=== PATIENT | male | born 1955 | race Caucasian/White ===

== ENCOUNTER → 2022-07-16 14:41 | Outpatient (BNVA) | payer OTHER, SELFPAY | PROVIDERS: PCP Pediatrics; Visit Provider Nurse Practitioner Family ==

== ENCOUNTER 2022-09-11 12:40 | Outpatient (REF) | payer OTHER, SELFPAY ==
--- NOTE | 2022-09-11 12:45 | EEG_ITS ---
This is a 16-channel EEG with an EKG lead. The patient is reported awake during the tracing. Background EEG rhythm is 8 to 10 hertz 5 to 20 microvolt posteriorly and lower amplitude fast anteriorly. Photic stimulation does not produce any significant abnormality. Hyperventilation is not performed. Cardiac lead does not reveal any significant abnormality. No sharp wave spikes or paroxysmal tendency noted. IMPRESSION: Unremarkable EEG. MD WILIAM Garcia/TIFFANY / [id number]
== END 2022-09-11 12:41 | disposition home or self-care (01) ==
LOC: HO.NEURO 12:40
PROVIDERS: PCP Pediatrics; Visit Provider Nurse Practitioner Family
DX: R55 Syncope and collapse (principal)
CPT/HCPCS: 95816

== ENCOUNTER 2022-09-17 10:11 | Outpatient (REF) | payer OTHER, SELFPAY ==
--- NOTE | ~2022-09-17 | MR_ITS ---
EXAMINATION: MR BRAIN WITHOUT CONTRAST CLINICAL INFORMATION: Tremor COMPARISON: None TECHNIQUE: Multiplanar multisequence MR imaging of the brain was obtained without intravenous contrast. FINDINGS: There is no acute infarct on diffusion-weighted imaging. Single focus of susceptibility artifact involving the right precentral gyrus near the vertex, which may reflect sequela of prior microhemorrhage. No extra-axial collection or mass effect/herniation. Scattered periventricular and deep white matter T2 FLAIR hyperintensities consistent with mild underlying microangiopathy. No hydrocephalus. The ventricles are normal in morphology and size. The major flow voids at the skull base are preserved. The midline structures are normal. The cerebellar tonsils are normally positioned. The craniocervical junction is normal. Marrow signal is within normal limits. The visualized soft tissues are without significant abnormality. Trace scattered paranasal sinus mucosal thickening. MR/MR head/brain wo con IMPRESSION: Mild chronic white matter microangiopathy. Otherwise unremarkable noncontrast MRI of the brain.
== END 2022-09-17 10:12 | disposition home or self-care (01) ==
LOC: HO.MRI 10:11
PROVIDERS: PCP Pediatrics; Visit Provider Nurse Practitioner Family
DX: R55 Syncope and collapse (principal); F10.11 Alcohol abuse, in remission; R25.1 Tremor, unspecified; R29.898 Other symptoms and signs involving the musculoskeletal system; R41.89 Other symptoms and signs involving cognitive functions and awareness; I10 Essential (primary) hypertension; E78.5 Hyperlipidemia, unspecified
CPT/HCPCS: 70551

== ENCOUNTER 2022-11-05 14:14 | Outpatient (AMB) | payer OTHER, SELFPAY ==
[2022-11-05 14:16] VITALS: BP 138/78; PULSE 74; O2SAT 97; BMI 20.6
--- NOTE | 2022-11-05 14:16 | A.OFFVIS_ITS ---
Intake Vital Signs 11/05/22 14:16 Height 5 ft 8 in Weight 135 lb 4 oz BMI 20.6 BP 138/78 Blood Pressure Location Rt brachial Position Sitting Pulse 74 Pulse Source Pulse Oximeter Pulse Oximetry (%) 97 Oxygen Delivery Method Room Air Intake Visit Reasons: 3m follow up syncopal attack/KINNEY - LVM Intake Note: Pt presents as a 3 month f/u for syncopal attack/KINNEY. Pt states things are about the same. pt states he has a flutter in his right ear alot almost like beating of a drum. Exchange Operator Required: No Allergies pollen extracts Allergy (Unknown, Verified 11/05/22 14:20) Unknown Medication List - Last Reconciled 11/05/22 by BEVERLY Parra amlodipine 2.5 mg PO DAILY aspirin (Adult Low Dose Aspirin) 81 mg PO DAILY atorvastatin 20 mg PO DAILY ibuprofen 800 mg PO Q8H loratadine 10 mg PO DAILY PRN metoprolol succinate ER 25 mg PO DAILY montelukast 10 mg PO DAILY HPI HPI Comments History of Present Illness Details 67-yr-old male presents for f/u visit. Pt denies any significant interval medical changes. Pt denies any interval syncopal episodes. Pt reports that he has had some unintentional weight loss- 9 lbs since last visit here 4 months ago. He is eating, not as much as beofre, feels less hungry, maybe a bit nauseous. His appetite is decreased. His sense of smell/taste is decreased. He is prone to acid reflux, but no real abd pain, diarrhea, no vomiting, no bloating. He has Omeprazole at home- uses prn. He just scheduled his routine colonoscopy- scheduled in June 2023. He is having increased BUE tremor at rest and w/ action. His legs can feel shaky at times. He is Ind w/ ADLs- sometimes can have some difficulty w/ buttons at times. Some difficulty writing and cutting his food. Throat can feel dry, constricted. Some drooling at times. He feels more stiff- in joints and his back. He is more prone to lightheadedness. His sleep is poor, wakes up almost hourly. He has a h/o snoring. 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 for s sleep consult. Denies parasomnias. Denies hallucinations. Feels like his memory is getting worse- difficulty recalling names. No difficulty paying his bills. Lives w/ his friend. He also has mild-mod mid-frontal pressure headache can be a/w nausea. May occur a few hours, 2-3 days in a row, and then not for a few weeks. Ibuprofen helps sometimes. trying to take less often. He does have a right ear fluttering- started several months ago. Denies ear pain. He is prone to jaw clenching. Today, he notes that his father had tremor and was prone to orthostatic hypotens ion/syncope from low salt levels. 09/11/22, EEG- normal 09/17/22, MR/MR head/brain wo con IMPRESSION: Mild chronic white matter microangiopathy. Otherwise unremarkable noncontrast MRI of the brain. [facility] Medical History (Updated 11/05/22 @ 15:13 by BEVERLY Parra) HLD (hyperlipidemia) HTN (hypertension) Alcohol abuse, in remission Surgical History S/P spinal surgery Hx of release of tendon Hx of tonsillectomy Hx of neck surgery Family History Mother Lung cancer Macular degeneration Father Myocardial infarction Brother Myocardial infarction Maternal Grandmother Cancer Son Asthma Social History Alcohol intake: former Patient Tobacco Use Status: Current everyday Tobacco user Substance Use Type: Marijuana Review of Systems Const All systems reviewed & are unremarkable except as noted in HPI and below Physical Exam Vital Signs: Last Vital Signs Pulse 74 11/05/22 14:16 BP 138/78 11/05/22 14:16 Pulse Ox 97 11/05/22 14:16 Oxygen Delivery Method Room Air 11/05/22 14:16 BMI result Body Mass Index 20.6 Const General: cooperative and no acute distress Orientation/consciousness: patient oriented x3 HEENT Head: Yes normocephalic Resp Effort & Inspection: normal respiratory effort and able to speak in complete sentences Neuro Other: Mild palpebrel asymmetry R > L BUE mild rest tremor BUE tone Addison R > L kinetic and wing beat tremor CARLIN: decreased BUE fluidity- R > L BUE mild tone R > L Stands ok, no right arm swing w/ right fingers flexed and finger movements, steady gait, stride ok. General: patient oriented x3 Cognition (Neuro): normal cognition Motor exam (neuro): 5/5 motor strength present throughout Psych Appearance: grossly normal Mental Status: mental status grossly normal Speech and movement: Clear speech present Affect: normal affect Attitude: cooperative Assessment & Plan Assessment & Plan (1) Syncope: Code(s): R55 - Syncope and collapse (2) Tremor: Code(s): R25.1 - Tremor, unspecified (3) Rigidity: Code(s): R29.898 - Other symptoms and signs involving the musculoskeletal system (4) Cognitive changes: Code(s): R41.89 - Other symptoms and signs involving cognitive functions and awareness Plan Reviewed EEG- normal Reviewed brain MRI- Mild chronic white matter microangiopathy. No findings to explain pt's s/s. Concur w/ Sleep consult- at [facility]. For wt loss- Pt advised that anorexia is commonly seen w/ decreased sense of smell/tatse, however pt does endorse some acid reflux. Advised to try to take his Omeprazole daily, try adding small high calorie snacks (nuts, trail mix). Will check basic labs. Pt advised to f/u w/ Dr Chow. For tremor, rigidity, h/o syncope- Pt advised to undergo DaTscan to assess for Parkinson's or other dopaminergic process. f/u in 3 months or sooner prn. Orders: Orders TSH reflex Free T4 Today R25.1 - Tremor, unspecified, R29.898 - Other symptoms and signs involving the musculoskeletal system, R41.89 - Other symptoms and signs involving cognitive functions and awareness, R55 - Syncope and collapse Vitamin B12 and Folate Today R25.1 - Tremor, unspecified, R29.898 - Other symptoms and signs involving the musculoskeletal system, R41.89 - Other symptoms and signs involving cognitive functions and awareness, R55 - Syncope and collapse Complete Blood Count Auto Diff Today R25.1 - Tremor, unspecified, R29.898 - Other symptoms and signs involving the musculoskeletal system, R41.89 - Other symptoms and signs involving cognitive functions and awareness, R55 - Syncope and collapse Erythrocyte Sedimentation Rate Today R25.1 - Tremor, unspecified, R29.898 - Other symptoms and signs involving the musculoskeletal system, R41.89 - Other symptoms and signs involving cognitive functions and awareness, R55 - Syncope and collapse DaTscan Today R25.1 - Tremor, unspecified, R29.898 - Other symptoms and signs involving the musculoskeletal system, R41.89 - Other symptoms and signs involving cognitive functions and awareness, R55 - Syncope and collapse Comprehensive Met. Panel Today R25.1 - Tremor, unspecified, R29.898 - Other symptoms and signs involving the musculoskeletal system, R41.89 - Other symptoms and signs involving cognitive functions and awareness, R55 - Syncope and collapse CRP High Sensitivity Today R25.1 - Tremor, unspecified, R29.898 - Other symptoms and signs involving the musculoskeletal system, R41.89 - Other symptoms and signs involving cognitive functions and awareness, R55 - Syncope and collapse Hemoglobin A1c Today R25.1 - Tremor, unspecified, R29.898 - Other symptoms and signs involving the musculoskeletal system, R41.89 - Other symptoms and signs involving cognitive functions and awareness, R55 - Syncope and collapse Vitamin D 25-OH (D2 and D3) Today R25.1 - Tremor, unspecified, R29.898 - Other symptoms and signs involving the musculoskeletal system, R41.89 - Other symptoms and signs involving cognitive functions and awareness, R55 - Syncope and collapse Coding Level of Care Code Est Pt Level 4 (07855) Diagnoses Syncope R55 Tremor R25.1 Rigidity R29.898 Cognitive changes R41.89
== END 2022-11-05 15:19 | disposition home or self-care (01) ==
PROVIDERS: Visit Provider Nurse Practitioner Family
DX: R55 Syncope and collapse (principal); R25.1 Tremor, unspecified; R29.898 Other symptoms and signs involving the musculoskeletal system; R41.89 Other symptoms and signs involving cognitive functions and awareness
CPT/HCPCS: 99214

== ENCOUNTER → 2022-11-05 14:14 | Outpatient (BNVA) | payer OTHER, SELFPAY | PROVIDERS: Visit Provider Nurse Practitioner Family ==

== ENCOUNTER 2023-02-14 14:02 | Outpatient (AMB) | payer OTHER, SELFPAY ==
--- NOTE | 2023-02-14 15:09 | A.OFFVIS_ITS ---
Intake Vital Signs 02/14/23 15:11 Height 5 ft 8 in Weight 135 lb BMI 20.5 BP 130/64 Blood Pressure Location Rt brachial Position Sitting Intake Visit Reasons: 3m f/u syncopal attack/KINNEY - LVM Intake Note: Patient presents for 3 month follow up syncopal attack. Allergies pollen extracts Allergy (Unknown, Verified 02/14/23 15:14) Unknown Medication List - Last Reconciled 02/14/23 by BEVERLY Parra aspirin (Adult Low Dose Aspirin) 81 mg PO DAILY atorvastatin 20 mg PO DAILY ibuprofen 800 mg PO Q8H loratadine 10 mg PO DAILY PRN metoprolol succinate ER 25 mg PO DAILY montelukast 10 mg PO DAILY HPI HPI Comments History of Present Illness Details 67-yr-old male presents for f/u visit. DaTscan was near normal. Pt denies any interval syncopal episodes. His weight loss has stabilized. He is Ind w/ ADLs- sometimes can have some difficulty w/ buttons at times. Some difficulty writing and cutting his food. Throat can feel dry, constricted. Some drooling at times. Continues to have BUE tremor at rest and w/ action. His legs can feel shaky at times. He feels more stiff- in joints and his back. He can be lightheaded, but no syncope. He continues to have sleep difficulties- Sleep study is scheduled through [employer]. Denies parasomnias. Denies hallucinations. Some STM difficulties- difficulty recalling names. Work-up: 12/20/22, Brain ELENA SPECT study FINDINGS: Symmetric activity noted in bilateral caudate nuclei. Activity in bilateral putamen is also nearly symmetric except minimal decreased uptake in the anterior right putamen. IMPRESSION: Near normal symmetric activity in the bilateral basal ganglia as described above. 11/06/2022 TSH reflex Free T4 1.22 Vitamin B12 420 Folate > 20 Complete Blood Cou nt Auto Diff WNL Erythrocyte Sedime ntation Rate 18 Comprehensive Met. Panel WNL CRP High Sensitivi ty < 0.29 Hemoglobin A1c 5.7% Vitamin D 25-OH (D 2 and D3) 56 09/11/22, EEG- normal 09/17/22, MR/MR head/brain wo con: Mild c hronic white matter microangiopathy. Otherwise unremarkable noncontrast MRI of the brain. [facility] Medical History (Updated 11/05/22 @ 15:13 by BEVERLY Parra) HLD (hyperlipidemia) HTN (hypertension) Alcohol abuse, in remission Surgical History S/P spinal surgery Hx of release of tendon Hx of tonsillectomy Hx of neck surgery Family History Mother Lung cancer Macular degeneration Father Myocardial infarction Brother Myocardial infarction Maternal Grandmother Cancer Son Asthma Social History Alcohol intake: former Patient Tobacco Use Status: Current everyday Tobacco user Substance Use Type: Marijuana Review of Systems Const All systems reviewed & are unremarkable except as noted in HPI and below Physical Exam Vital Signs: Last Vital Signs BP 130/64 02/14/23 15:11 BMI result Body Mass Index 20.5 Const General: cooperative and no acute distress Resp Effort & Inspection: normal respiratory effort and able to speak in complete sentences Neuro Other: A&O x's 3 Mild palpebrel asymmetry R > L BUE mild rest tremor BUE tone Addison R > L kinetic and wing beat tremor BUE mild tone R > L Stands ok, no right arm swing w/ right fingers flexed, steady gait, stride ok. Assessment & Plan Assessment & Plan (1) Tremor: Code(s): R25.1 - Tremor, unspecified (2) Cognitive changes: Code(s): R41.89 - Other symptoms and signs involving cognitive functions and awareness (3) Rigidity: Code(s): R29.898 - Other symptoms and signs involving the musculoskeletal system (4) Syncope: Code(s): R55 - Syncope and collapse Plan Reviewed labs- NL. DaTscan- near normal, w/ very mild assymetric dopaminergic uptake in the anterior right putamen. Near normal DaTscan result may indicate that pt has a secondary Parkinsonism process, possibly r/t h/o alchol abuse. However, discussed it is also possible that we have done scan early in an idiopathic Parkinson's dz, and thus mild right anterior putamen asysmetry may become more pronounced with time. Thus, I have advised pt to undergo a dopaminergic tx trial to monitor if his tremor is levodopa responsive. Trial CD-LD 25-100mg 1/2 - 1 tab bid. Strive to drink 64 oz per day, including 1-2 servings of electrolyte replacement drinks. Monitor headaches. Monitor sleep- review sleep study when available. f/u in 3-4 months or sooner prn. Medications: New carbidopa-levodopa 25-100 mg take w/ a cracker 30 minutes before breakfast and dinner, 0.5 - 1 tabs PO BID 180 tabs 3RF 90 days Coding Level of Care Code Est Pt Level 4 (23510) Diagnoses Tremor R25.1 Cognitive changes R41.89 Rigidity R29.898 Syncope R55
[2023-02-14 15:11] VITALS: BP 130/64; BMI 20.5
== END 2023-02-14 15:46 | disposition home or self-care (01) ==
PROVIDERS: PCP Pediatrics; Visit Provider Nurse Practitioner Family
DX: R25.1 Tremor, unspecified (principal); R41.89 Other symptoms and signs involving cognitive functions and awareness; R29.898 Other symptoms and signs involving the musculoskeletal system; R55 Syncope and collapse
CPT/HCPCS: 99214

== ENCOUNTER → 2023-02-14 14:02 | Outpatient (BNVA) | payer OTHER, SELFPAY | PROVIDERS: PCP Pediatrics; Visit Provider Nurse Practitioner Family | DX: R41.89 Other symptoms and signs involving cognitive functions and awareness (principal); R29.898 Other symptoms and signs involving the musculoskeletal system; R25.1 Tremor, unspecified; R55 Syncope and collapse ==

== ENCOUNTER 2023-06-17 14:49 | Outpatient (AMB) | payer OTHER, SELFPAY ==
--- NOTE | 2023-06-17 15:25 | A.OFFVIS_ITS ---
Vital Signs 06/17/23 15:30 Height 5 ft 8 in Weight 147 lb 4 oz BMI 22.4 BP 124/60 Blood Pressure Location Lt brachial Position Sitting Pulse 61 Pulse Source Pulse Oximeter Pulse Oximetry (%) 98 Oxygen Delivery Method Room Air Intake Visit Reasons: 4 mo f/u -Syncopal attack/KINNEY-LVM Intake Note: Patient presents for 4 months f/u. Allergies pollen extracts Allergy (Unknown, Verified 06/17/23 15:29) Unknown Medication List - Last Reconciled 06/17/23 by BEVERLY Parra aspirin (Adult Low Dose Aspirin) 81 mg PO DAILY atorvastatin 20 mg PO DAILY carbidopa-levodopa 25-100 mg 0.5 - 1 tabs PO BID 90 days ibuprofen 800 mg PO Q8H loratadine 10 mg PO DAILY PRN metoprolol succinate ER 25 mg PO DAILY montelukast 10 mg PO DAILY HPI Comments Details: 67-yr-old male presents for f/u visit. Pt denies any significant interval medical history changes. Pt's reports he still has good days and bed days, but more good days. Pt's current tremor medication regimen: CD-LD 1 tab bid- seems to be helpful. ADL's: Ind IADL's: No issues at work. Swallowing: Some at night, throat feels tight. Drooling: Occassional Orthostatic lightheadedness: Only if stands quickly Constipation: Does have constipation- manages w/ prn colace. Urinary symptoms: Urinary frequency Tremor: Tremor varies- worse if stressed Dyskinesia: None Stiffness: Feels always stiff - attributes to h/o neck and back sx Gait changes: Denies Freezing: Denies Falls: Denies Mood: Good Hallucinations: Denies Memory: Noticing a bit more- forgetting names. Sleep: If he forgets his evening dose, may have difficulty getting comfortable. Has not had sleep study yet- there was a miscommunication in the scheduling. Endorses snoring, jerking arousal, unrefreshing sleep, Exercise: Not as much as he used to. Used to work-out 6 days a week at the gym at work- light weights and walking. Work-up: 12/20/22, Brain ELENA SPECT studyFINDINGS: Symmetric activity noted in bilateral caudate nuclei. Activity in bilateral putamen is also nearly symmetric except minimal decreased uptake in the anterior right putamen. IMPRESSION: Near normal symmetric activity in the bilateral basal ganglia as described above. PFSH Medical History HLD (hyperlipidemia) HTN (hypertension) Alcohol abuse, in remission Surgical History H/O removal of cyst S/P spinal surgery Hx of release of tendon Hx of tonsillectomy Hx of neck surgery Family History Mother Lung cancer Macular degeneration Father Myocardial infarction Brother Myocardial infarction Maternal Grandmother Cancer Son Asthma Social History Alcohol intake: former Patient Tobacco Use Status: Current everyday Tobacco user Substance Use Type: Marijuana Review of Systems Const All systems reviewed & are unremarkable except as noted in HPI and below Physical Exam Vital Signs: Last Vital Signs Pulse 61 06/17/23 15:30 BP 124/60 06/17/23 15:30 Pulse Ox 98 06/17/23 15:30 Oxygen Delivery Method Room Air 06/17/23 15:30 BMI result Body Mass Index 22.4 Const General: cooperative and no acute distress Resp Effort & Inspection: normal respiratory effort and able to speak in complete sentences Neuro Other: A&O x's 3 BUE mild rest tremor BUE tone Addison R > L postural tremor BUE mild tone R > L Stands ok, no right arm swing w/ right fingers flexed, steady gait, stride ok. Assessment & Plan Assessment & Plan (1) Tremor: Code(s): R25.1 - Tremor, unspecified Category: Medical (2) Rigidity: Code(s): R29.898 - Other symptoms and signs involving the musculoskeletal system Category: Medical (3) Cognitive changes: Code(s): R41.89 - Other symptoms and signs involving cognitive functions and awareness Category: Medical (4) Excessive daytime sleepiness: Code(s): G47.19 - Other hypersomnia Category: Medical (5) Sleep difficulties: Code(s): G47.9 - Sleep disorder, unspecified Category: Medical (6) Snoring: Code(s): R06.83 - Snoring Category: Medical Plan DaTscan- near normal, w/ very mild assymetric dopaminergic uptake in the anterior right putamen. Near normal DaTscan result may indicate that pt has a secondary Parkinsonism process, possibly r/t h/o alchol abuse. However, discussed it is also possible that we have done scan early in an idiopathic Par kinson's dz, and thus mild right anterior putamen asysmetry may become more pronounced with time. Pt has had an initial positive effect from levodopa responsive. Increase CD-LD 25-100mg from 1 tab bid to 1 tab tid. Strive to drink 64 oz per day, including 1-2 servings of electrolyte replacement drinks. Increase physical activity. Monitor headaches. Pt did not want to f/u w/ previous sleep clinic. Will arrange for HST to assess for sleep apnea. ? f/u in 6 months or sooner prn. Orders: Orders RT home sleep study Today G47.19 - Other hypersomnia, G47.9 - Sleep disorder, unspecified, R06.83 - Snoring Medications: Changed From carbidopa-levodopa 25-100 mg take w/ a cracker 30 minutes before breakfast and dinner, 0.5 - 1 tabs PO BID 90 days 180 tabs 3RF To carbidopa-levodopa 25-100 mg take w/ a cracker 30 minutes before breakfast, lunch, and dinner, 1 tab PO TID 90 days 270 tabs 3RF Coding Level of Care Code Est Pt Level 4 (89304) Diagnoses Tremor R25.1 Rigidity R29.898 Cognitive changes R41.89 Excessive daytime sleepiness G47.19 Sleep difficulties G47.9 Snoring R06.83 [place] Sleepiness Scale Questions Sitting and reading: moderate chance of dozing Watching TV: moderate chance of dozing Sitting inactive in a theater, movie etc.: moderate chance of dozing As a passenger in a car for an hour without break: moderate chance of dozing Lying down in the afternoon when circumstances permit: moderate chance of dozing Sitting and talking to someone: would never doze Sitting quietly after lunch without alcohol: slight chance of dozing In a car, while stopped for a few minutes in the traffic: would never doze ESS < 10: normal, ESS > 12: pathologic: 11
[2023-06-17 15:30] VITALS: BP 124/60; PULSE 61; O2SAT 98; BMI 22.4
== END 2023-06-17 16:04 | disposition home or self-care (01) ==
PROVIDERS: PCP Pediatrics; Visit Provider Nurse Practitioner Family
DX: R25.1 Tremor, unspecified (principal); R29.898 Other symptoms and signs involving the musculoskeletal system; R41.89 Other symptoms and signs involving cognitive functions and awareness; G47.19 Other hypersomnia; G47.9 Sleep disorder, unspecified; R06.83 Snoring
CPT/HCPCS: 99214

== ENCOUNTER → 2023-06-17 14:49 | Outpatient (BNVA) | payer OTHER, SELFPAY | PROVIDERS: PCP Pediatrics; Visit Provider Nurse Practitioner Family ==

== ENCOUNTER → 2023-10-29 07:32 | Outpatient (REF) | payer OTHER, SELFPAY | LOC: HO.SL 07:32 | PROVIDERS: PCP Pediatrics; Visit Provider Nurse Practitioner Family | DX: G47.19 Other hypersomnia (principal); R06.83 Snoring | CPT/HCPCS: 95806 ==

== ENCOUNTER → 2023-10-30 07:46 | Outpatient (BNV) | payer OTHER, SELFPAY | PROVIDERS: PCP Pediatrics; Visit Provider Psychiatry & Neurology Neurology | DX: R06.83 Snoring (principal); R40.0 Somnolence | CPT/HCPCS: 95806 ==

== ENCOUNTER 2023-12-24 12:51 | Outpatient (AMB) | payer OTHER, SELFPAY ==
--- NOTE | 2023-12-24 13:15 | A.OFFVIS_ITS ---
Vital Signs 12/24/23 13:16 Height 5 ft 8 in Weight 145 lb BMI 22.0 Intake Visit Reasons: 6 Month F/U Intake Note: Patient presents for 6 month follow up. patient blacked out 3 weeks ago and got a cuncussion due to hitting his head. Allergies pollen extracts Allergy (Unknown, Verified 12/24/23 13:18) Unknown Medication List - Last Reconciled 12/24/23 by BEVERLY Parra aspirin (Adult Low Dose Aspirin) 81 mg PO DAILY atorvastatin 20 mg PO DAILY carbidopa-levodopa 25-100 mg 1 tab PO TID 90 days ibuprofen 800 mg PO Q8H loratadine 10 mg PO DAILY PRN metoprolol succinate ER 25 mg PO DAILY montelukast 10 mg PO DAILY HPI Comments Details: 67-yr-old male presents for urgent f/u visit Pt reports he had been home ill w/ a GI illness- Gi upset and diarhea. He got up around 8pm, became dizzy, and next thing he knew he came to, laying on his living room floor/fire place heat and realized his right temporal region of head was bleeding. He just wanted to go to bed, 20 minutes later, he started having headache and N/V and dizziness. The following day, he felt a bit out of it, and photo/phonophobic, ringing in the ears, off-balance sensation. He did see his PCP 2 days later, she sent him for head CT. Pt was called back while being driven home to have f/u eval as head CT suggested bleed. The f/u head imaging- they did not see a bleed. He has had 2 previous concussions when younger. Head CT 12/04/23, 12:07 PM IMPRESSION 1. Small 0.6 cm subdural hematoma versus prominence of the posterior falx. If further evaluation is needed, consider MRI brain and/or serial CT head. Strongly consider neurology consultation or send to emergency department 2. Chronic changes as above. 12/04/2023 14:32 IMPRESSION: No acute intracranial pathology. He feels like he is getting better, about 80% better. Still a bit sensitive to light, having headaches. Eating does trigger a right temporal pain, which resolves after eating. He is still feeling off-balance. And noting more cognitive difficulties- difficulties putting words together. Otherwise reports he just occasionally has very mild brief orthostatic lightheadedness. Pt's current tremor medication regimen: CD-LD 1 tab tid- seems to be helpful. ADL's: Ind IADL's: No issues at work. Swallowing: Some at night, throat feels tight. Drooling: Occasional Orthostatic lightheadedness: Only if stands quickly Constipation: Does have constipation- forgot he could use his prn colace. Urinary symptoms: Urinary frequency Tremor: Tremor varies- worse if stressed Dyskinesia: None Stiffness: Has stiffness - attributes to h/o neck and back sx Gait changes: as above Freezing: Denies Falls: as above Mood: Good Hallucinations: Denies Memory: as above Sleep: If he forgets his evening dose, may have difficulty getting comfortable. HST was un-refereshing. Denies leg cramps. Can have restless sleep. Exercise: Not as much as he used to. Used to work-out 6 days a week at the gym at work- light weights and walking. Previous work-up: 12/20/22, Brain ELENA SPECT studyFINDINGS: Symmetric activity noted in bilateral caudate nuclei. Activity in bilateral putamen is also nearly symmetric except minimal decreased uptake in the anterior right putamen. IMPRESSION: Near normal symmetric activity in the bilateral basal ganglia as described above. [facility] Medical History HLD (hyperlipidemia) HTN (hypertension) Alcohol abuse, in remission Surgical History H/O removal of cyst S/P spinal surgery Hx of release of tendon Hx of tonsillectomy Hx of neck surgery Family History Mother Lung cancer Macular degeneration Father Myocardial infarction Brother Myocardial infarction Maternal Grandmother Cancer Son Asthma Social History Alcohol intake: former Patient Tobacco Use Status: Current everyday Tobacco user Substance Use Type: Marijuana Physical Exam Vital Signs: BMI result Body Mass Index 22.0 Const General: cooperative and no acute distress Resp Effort & Inspection: normal respiratory effort and able to speak in complete sentences Neuro Other: A&O x's 3 Finger-nose w/ mild dysmetria BUE mild rest tremor BUE tone Addison R > L postural tremor BUE mild tone R > L Stands ok, no right arm swing w/ right fingers flexed, steady gait, stride ok. Romberg negative. Tandem- able to take a couple of steps before being unbalanced. Cranial nerves: Yes CN's II-XII intact bilaterally Assessment & Plan Assessment & Plan (1) Head injury with loss of consciousness: Code(s): S06.9X9A - Unspecified intracranial injury with loss of consciousness of unspecified duration, initial encounter Category: Medical (2) Difficulty balancing: Code(s): R29.818 - Other symptoms and signs involving the nervous system Category: Medical (3) Photophobia: Code(s): H53.149 - Visual discomfort, unspecified Category: Medical (4) Abnormal tandem gait test: Code(s): R26.9 - Unspecified abnormalities of gait and mobility Category: Medical (5) Tremor: Code(s): R25.1 - Tremor, unspecified Category: Medical (6) Rigidity: Code(s): R29.898 - Other symptoms and signs involving the musculoskeletal system Category: Medical (7) Cognitive changes: Code(s): R41.89 - Other symptoms and signs involving cognitive functions and awareness Category: Medical (8) Sleep difficulties: Code(s): G47.9 - Sleep disorder, unspecified Category: Medical Plan Pt advised to undergo brain MRI to assess for secondary intracranial etiology of balance and cognitive difficulties, as well as headache and photophobia. Trial diclofenac gel topically to right temoral region. Continue CD-LD 25-100mg from 1 tab bid to 1 tab tid. Strive to drink 64 oz per day, including 1-2 servings of electrolyte replacement drinks. Increase physical activity. Monitor headaches. Reviewed HST- no evidenbce of sleep apnea, consider f/u in-lab PSG in f/u. ? Will follow-up upon review of above and patient to follow-up in clinic in 4-6 months or sooner prn. Orders: Orders MR head/brain wo con 12/24/23 H53.149 - Visual discomfort, unspecified, R26.9 - Unspecified abnormalities of gait and mobility, R29.818 - Other symptoms and signs involving the nervous system, S06.9X9A - Unspecified intracranial injury with loss of consciousness of unspecified duration, initial encounter Medications: New diclofenac sodium 1% (Voltaren Arthritis Pain) apply to right temporal region prior to eating 4 grams topical QID PRN 100 grams 1RF jaw pain/headache 7 days Coding Level of Care Code Est Pt Level 4 (22370) Diagnoses Head injury with loss of consciousness S06.9X9A Difficulty balancing R29.818 Photophobia H53.149 Abnormal tandem gait test R26.9 Tremor R25.1 Rigidity R29.898 Cognitive changes R41.89 Sleep difficulties G47.9
[2023-12-24 13:16] VITALS: BMI 22.0
== END 2023-12-24 14:56 | disposition home or self-care (01) ==
LOC: HO.HSMS 12:51
PROVIDERS: PCP Pediatrics; Visit Provider Nurse Practitioner Family
DX: S06.9X9A Unspecified intracranial injury with loss of consciousness of unspecified duration, initial encounter (principal); R29.818 Other symptoms and signs involving the nervous system; H53.149 Visual discomfort, unspecified; R26.9 Unspecified abnormalities of gait and mobility; R25.1 Tremor, unspecified; R29.898 Other symptoms and signs involving the musculoskeletal system; R41.89 Other symptoms and signs involving cognitive functions and awareness; G47.9 Sleep disorder, unspecified
CPT/HCPCS: 99214

== ENCOUNTER → 2023-12-24 12:51 | Outpatient (BNVA) | payer OTHER, SELFPAY | PROVIDERS: PCP Pediatrics; Visit Provider Nurse Practitioner Family ==

== ENCOUNTER → 2024-01-08 13:28 | Outpatient (BNV) | payer OTHER, SELFPAY | PROVIDERS: PCP Pediatrics; Visit Provider Radiology Diagnostic Radiology | DX: S06.9X9A Unspecified intracranial injury with loss of consciousness of unspecified duration, initial encounter (principal) | CPT/HCPCS: 70551 ==

== ENCOUNTER 2024-01-08 13:31 | Outpatient (REF) | payer OTHER, SELFPAY ==
--- NOTE | ~2024-01-08 | MR_ITS ---
EXAMINATION: MR BRAIN WITHOUT CONTRAST CLINICAL INFORMATION: Unspecified intracranial injury with loss of consciousness. COMPARISON: MRI dated September 17, 2022. TECHNIQUE: MRI of the brain was obtained using routine sequences without contrast. FINDINGS: No restricted diffusion. No acute intracranial hemorrhage, mass effect, midline shift, hydrocephalus or herniation. Villanueva-white matter differentiation is normal. Bilateral multifocal patchy and punctate deep periventricular white matter hyperintense T2 FLAIR signal involving centrum semiovale and lundy radiata with a round dense distribution. Posterior cranial fossa contents demonstrated no acute intracranial hemorrhage or mass effect. Sellar/suprasellar region demonstrated no gross masses or signal abnormality. Craniocervical junction is intact and normal. Midline structures are normal. There are a few scattered susceptibility signal foci within the infratentorial and supratentorial compartment. Small cavum septum pellucidum, congenital variant. MR/MR head/brain wo con IMPRESSION: No acute stroke/ischemia or acute brain abnormality. Nonspecific T2 FLAIR white matter signal foci. Consider small vessel occlusive disease. Few old microhemorrhages suggesting hypertensive etiology. Electronically signed by: Beto Lazo MD 01/09/2024 09:58 AM EST
== END 2024-01-08 13:32 | disposition home or self-care (01) ==
LOC: HO.MRI 13:31
PROVIDERS: PCP Pediatrics; Visit Provider Nurse Practitioner Family
DX: S06.9X9A Unspecified intracranial injury with loss of consciousness of unspecified duration, initial encounter (principal); R29.818 Other symptoms and signs involving the nervous system; H53.149 Visual discomfort, unspecified; R26.9 Unspecified abnormalities of gait and mobility
CPT/HCPCS: 70551

== ENCOUNTER 2024-07-01 13:15 | Outpatient (AMB) | payer MEDICARE, SELFPAY ==
[2024-07-01 13:47] VITALS: BP 130/68; PULSE 67; O2SAT 97; BMI 22.5
--- NOTE | 2024-07-01 13:47 | MHC.OFFVIS ---
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 Accompanied by: Self / Same As Patient Allergies pollen extracts Allergy (Unknown, Verified 07/01/24 14:01) Unknown Medication List - Last Reconciled 07/01/24 by BEVERLY Parra amantadine HCl 50 mg (1/2 x 100 mg) PO BID 30 days aspirin (Adult Low Dose Aspirin) 81 mg PO DAILY atorvastatin 20 mg PO DAILY carbidopa-levodopa 25-100 mg 1 tab PO TID 90 days diclofenac sodium 1% (Voltaren Arthritis Pain) 4 grams topical QID PRN 7 days ibuprofen 800 mg PO Q8H loratadine 10 mg PO DAILY PRN metoprolol succinate ER 25 mg PO DAILY montelukast 10 mg PO DAILY HPI Comments Details: 68-yr-old male presents for follow-up of tremor, cognitive difficulties, fall with small posterior falx subdural hematoma in November of 2023. Patient states he is over not feeling as well as he was the last time he saw us. Interval brain MRI without contrast for follow-up of previously known small posterior falx subdural hematoma, was without acute abnormalities, but did demonstrate likely chronic microangiopathic white matter changes and a few chronic microhemorrhages. He is still having having right fontal/temporal headaches, about 4-5 times per week, which come and go- since he fell and hit his head in Nov 2023. No longer having the right temporal headache after eating. He feels more photophobic, phonophobic. Note, patient has reported intermittent headaches associated with nausea but not photophobia, phonophobia prior to the fall in November. He is having some cognitive difficulties, feeling more forgetful, having difficulty putting his words together. Last Friday, he was getting ready to go to bed, felt like he might pass out, he felt dizzy, like seeing a tunnel and his hearing felt funny, and became pale white and cold sweaty, and then he collapsed onto a chair. He cannot think of a trigger for this episode- no alcohol, had eaten. He states he has the start of these episodes, but it usually stops on its own. He typically drinks 3-4 16 oz glasses of water, 2-3 coffees, and 1 caffeine free soda per day. Takes very little added salt. He is f/b cardiology- last seen a couple of years ago, though does not recall who he had seen before. He also feels his movements symptoms have also worsened- he is shaking more, having more stiffness. He wonders if he actually has Parkinson's disease at this point. Pt's current tremor medication regimen: CD-LD 1 tab tid- seems to be helpful. ADL's: Ind IADL's: No issues at work. Senses: reports decreaseds ense of smeel and taste. Swallowing: Some at night, throat feels tight and dry. Drooling: Noticing during the day. Orthostatic lightheadedness: Tries to stand slowly Constipation: Does have constipation- has not needed to take anything prn. Urinary symptoms: Urinary frequency Tremor: Mostly in his L > R hands and core, sometimes his legs. Right bicep may twitch at times Dyskinesia: None Stiffness: He feels more stiff. Now having leg cramps. Gait changes: Feels more stiff Freezing: Denies Falls: No other than above Mood: More irritable. His friend often thinks he is mad due to decreased facial expression. Hallucinations: Denies Memory: as above Sleep: He never feels refreshed. HST in October of 2023 was unremarkable. 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 Used to work-out 6 days a week at the gym at work- light weights and walking. His father had orthostatic hypotension and tremor- pt thinks he could have had PD. Paternal aunt had PD in her 70s. Denies h/o occupational exposures. Denies h/o antipsychotic or metoclopramide tx's. has h/o cervical sx repair x's 2- . [facility] Medical History HLD (hyperlipidemia) HTN (hypertension) Alcohol abuse, in remission Surgical History H/O removal of cyst S/P spinal surgery Hx of release of tendon Hx of tonsillectomy Hx of neck surgery Family History Mother Lung cancer Macular degeneration Father Myocardial infarction Brother Myocardial infarction Maternal Grandmother Cancer Son Asthma Social History Alcohol intake: former Patient Tobacco Use Status: Current everyday Tobacco user Substance Use Type: Marijuana Physical Exam Vital Signs: Last Vital Signs Pulse 67 07/01/24 13:47 BP 130/68 07/01/24 13:47 Pulse Ox 97 07/01/24 13:47 Oxygen Delivery Method Room Air 07/01/24 13:47 BMI result Body Mass Index 22.5 Const General: cooperative and no acute distress Resp Effort & Inspection: normal respiratory effort and able to speak in complete sentences Neuro Other: A&O x's 3, with mild short-term memory lapses Slight decreased expression. Finger-nose no dysmetria today. BUE tone LUE rest tremor. Addison L > R postural, postural, wing beat, and kinetic tremor Stands ok, no right arm swing, slight stooping shoulder, steady gait, stride ok. Time BP HR Associated symptoms lying down 5 min 140/64 63 none standing 1 min 140/60 66 none standing 3 min 130/60 65 lightheadedness Results Reviewed Results Reviewed: 01/08/2024, MR/MR head/brain wo con IMPRESSION: No acute stroke/ischemia or acute brain abnormality. Nonspecific T2 FLAIR white matter signal foci. Consider small vessel occlusive disease. Few old microhemorrhages suggesting hypertensive etiology. Head CT 12/04/23, 12:07 PM IMPRESSION 1. Small 0.6 cm subdural hematoma versus prominence of the posterior falx. If further evaluation is needed, consider MRI brain and/or serial CT head. Strongly consider neurology consultation or send to emergency department 2. Chronic changes as above. 12/04/2023 14:32 IMPRESSION: No acute intracranial pathology. 10/30/2023 HST showed AHI 0.5 per hour, we will treat nazanin 83% with SpO2 under 88% for 1.9 minute of study time. 12/20/22, Brain ELENA SPECT studyFINDINGS: Symmetric activity noted in bilateral caudate nuclei. Activity in bilateral putamen is also nearly symmetric except minimal decreased uptake in the anterior right putamen. IMPRESSION: Near normal symmetric activity in the bilateral basal ganglia as described above. 09/11/2022, EEG- unremarkable 04/08/2022, echocardiogram at [facility], Normal left ventricular size and wall thickness. Normal regional wall motion Normal left ventricular systolic function. Left ventricular EF 55-60%. Normal left ventricular diastolic function Right ventricle is normal in size and systolic function No significant valvular disease Assessment & Plan Assessment & Plan (1) Head injury with loss of consciousness: Comment: November 2023- fall with subsequent small posterior falx subdural hematoma Code(s): S06.9X9A - Unspecified intracranial injury with loss of consciousness of unspecified duration, initial encounter Category: Medical (2) Tremor: Comment: 2022 DaTSCAN- minimal decreased uptake in the anterior right putamen. Code(s): R25.1 - Tremor, unspecified Category: Medical (3) Rigidity: Code(s): R29.898 - Other symptoms and signs involving the musculoskeletal system Category: Medical (4) Cognitive changes: Code(s): R41.89 - Other symptoms and signs involving cognitive functions and awareness Category: Medical (5) Sleep difficulties: Code(s): G47.9 - Sleep disorder, unspecified Category: Medical Plan Reviewed interval brain MRI, shows resolution of posterior falx subdural hematoma, however there is mild white matter microangiopathic changes and signs of foci of microhemorrhages. Patient does have a history of HTN/HDL- now well controlled, excessive alcohol use-in remission for many years. Discussed the patient's symptoms of tremor, rigidity, cognitive difficulties are progressing, which raises the likelihood that patient's symptoms are attributable to a Parkinson's process. Patient has family history of Parkinson's disease and has vascular risk factors. He endorses a history of excess alcohol intake, however denies dopamine antagonist use or occupational exposure. We will request Dr. Diaz's opinion in follow-up. Check XR C-spine- as patient has history of C-spine repair x2, and significantly decreased are you eat arms swing when walking, however has left predominant tremor and bradykinesia. Trial adding amantadine 50 mg twice a day taken with food in the morning and at lunch, in hopes this helps tremor, movements symptoms, cognition, and energy level. Continue CD-LD 25-100mg from 1 tab bid to 1 tab tid. Strive to drink 64 oz per day, including 1-2 servings of electrolyte replacement drinks. 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 For headaches, which have worsened since November 2023 head injury with posterior falx subdural hematoma: Start riboflavin 400 mg q.a.m. Start magnesium 400 mg q.h.s.- may help leg cramps and constipation as well May continue ibuprofen as needed. Information shared on nonpharmacological strategies to reduce light and noise sensitivity. ? Will follow-up upon review of above and patient to follow-up in clinic in 4-6 months or sooner prn. Orders: Orders XR cervical spine 4V Today R25.1 - Tremor, unspecified, R29.898 - Other symptoms and signs involving the musculoskeletal system Referrals Neuropsychiatry Referral R41.89 - Other symptoms and signs involving cognitive functions and awareness Cardiology Referral R42 - Dizziness and giddiness, R55 - Syncope and collapse Medications: New amantadine HCl Take with food at breakfast and lunch 50 mg (1/2 x 100 mg) PO BID 30 days 30 tabs 6RF magnesium oxide may hold for loose stools 400 mg PO BEDTIME 30 days 30 tabs 6RF riboflavin (vitamin B2) 400 mg PO DAILY 30 days 30 tabs 6RF Refilled carbidopa-levodopa 25-100 mg take w/ a cracker 30 minutes before breakfast, lunch, and dinner, 1 tab PO TID 90 days 270 tabs 3RF Coding Level of Care Code Est Pt Level 4 (73960) Complex EM visit Add On G2211 Diagnoses Head injury with loss of consciousness S06.9X9A Tremor R25.1 Rigidity R29.898 Cognitive changes R41.89 Sleep difficulties G47.9
== END 2024-07-01 15:23 | disposition home or self-care (01) ==
PROVIDERS: PCP Pediatrics; Visit Provider Nurse Practitioner Family
DX: S06.9X9A Unspecified intracranial injury with loss of consciousness of unspecified duration, initial encounter (principal); R25.1 Tremor, unspecified; R29.898 Other symptoms and signs involving the musculoskeletal system; R41.89 Other symptoms and signs involving cognitive functions and awareness; G47.9 Sleep disorder, unspecified
CPT/HCPCS: 99214; G2211

== ENCOUNTER → 2024-07-01 13:15 | Outpatient (BNVA) | payer MEDICARE, SELFPAY | PROVIDERS: PCP Pediatrics; Visit Provider Nurse Practitioner Family | DX: S06.9X9D Unspecified intracranial injury with loss of consciousness of unspecified duration, subsequent encounter (principal); R25.1 Tremor, unspecified; R29.898 Other symptoms and signs involving the musculoskeletal system; R41.89 Other symptoms and signs involving cognitive functions and awareness; G47.9 Sleep disorder, unspecified | CPT/HCPCS: 99212 ==

== ENCOUNTER 2024-07-06 14:11 | Outpatient (REF) | payer MEDICARE, SELFPAY ==
--- NOTE | ~2024-07-06 | XR_ITS ---
EXAMINATION: XR CERVICAL SPINE 4-5 VIEWS HISTORY: R25.1 - Tremor, unspecified COMPARISON: There are no prior studies for comparison. FINDINGS: AP, lateral, bilateral oblique, and open-mouth odontoid views of the cervical spine are submitted. Osseous mineralization is normal. The patient is status post anterior fusion of C6 and 7 with plates and screws and an intervertebral spacer. The fusion hardware is intact. The vertebral bodies maintain normal height and alignment. There is moderate degenerative disc disease at C5-6 with disc space narrowing and osteophyte formation. Milder changes are noted at the remaining levels. There is diffuse bilateral neural foraminal stenosis secondary to facet osteoarthritis and uncovertebral joint hypertrophy. The odontoid and lateral masses of C1 are intact. There is no prevertebral soft tissue swelling. Calcifications in the left neck are likely related to the internal carotid artery. XR/XR cervical spine 4V IMPRESSION: Status post anterior fusion of C6 and C7. Moderate degenerative changes as described. Electronically signed by: Edson Mclean MD 07/07/2024 08:02 AM EDT
--- OUTSIDE RECORDS SUMMARY | 2024-07-06 15:27 | XMS_ITS | Encounter Summary ---
Author Organization [facility] Address [address] [place] [address] Care Team Providers Care Baked Goods Stock Clerk Name Role Phone Kaushik Chow MD Primary Care Provider [phone] Reason for Visit * Reason Onset Date Comments Appointment 07/05/2024 Follow up needed Encounter Details Date Type Department Care Team (Late st Contact Info) Description 07/05/2024 Telephone [facility] - [address] [facility] [address] [place] [id number] Duarte Burkett MD [address] [place] [address] [place] [phone] Appointment (Follow up needed ) Social History Tobacco Use Types Packs/Day Years Used Date Smoking Tobacco: Every Day Cigarettes Smokeless Tobacco: Never Alcohol Use Standard Drinks/Week Comments No 0 (1 standard drink = 0.6 oz pur e alcohol) Sex and Gender Information Value Date Recorded Sex Assigned at Not on file Legal Sex Male 5:09 PM EST Gender Identity Not on file Sexual Orientation Not on file documented as of this encounter Progress Notes * Jeremias Miramontes - 07/06/2024 8:24 AM EDT Left message to schedule appointment with Toma Vasquez or . * Wendy Villegas MA - 07/05/2024 11:12 AM EDT Lvm for pt to cb * Duarte Burkett MD - 07/05/2024 10:45 AM EDT Please schedule the patient for a follow-up appointment with Bud Bazzi, or Toma. If no openings, then talk to Katerine Nath. * Wendy Villegas MA - 07/05/2024 10:38 AM EDT AOP/EA pt --Please see msg below, Pt has not been seen since 06/17--is there a particular day in your schedule you would like me to schedule this pt? OV in chart for review * Doreen Randhawa MA - 07/05/2024 9:35 AM EDT Adele from [facility] called. They are requesting the patient be seen for afollow up due to a near-syncope episode. They are faxing over the office note for review. Please advise and schedule patient. Phone for Adele [phone] documented in this encounter Plan of Treatment Not on file documented as of this encounter Visit Diagnoses Not on filedocumented in this encounter Additional Health Concerns Assessment Noted Time PHQ-9 Depression Total Score: 12 024 12:25 PM EST documented as of this encounter Care Teams Baked Goods Stock Clerk Relationship Specialty Start Date End Date Kaushik Chow MD [address] [place] [phone] PCP - General Internal Medicine 07/31/20 documented as of this encounter
--- OUTSIDE RECORDS SUMMARY | 2024-07-06 15:27 | XMS_ITS | Encounter Summary ---
Author Organization [facility] Address [address] [place] [address] Care Team Providers Care Band Instrument Repairer Name Role Phone Kaushik Chow MD Primary Care Provider [phone] Reason for Visit * Reason Onset Date Comments Referral 07/05/2024 Paper routine re ferral on for established patient. Brought to [facility] due to messages in charge from today. aek Encounter Details Date Type Department Care Team (Late st Contact Info) Description 07/05/2024 Telephone [facility] [address] [place] [phone] Kaushik Chow MD [address] [place] [address] Referral (Paper routine referral on for established patient. Brought to [facility] due to messages in charge from today. aek) Social History Tobacco Use Types Packs/Day Years [...] on file documented as of this encounter Plan of Treatment Not on file documented as of this encounter Visit Diagnoses Not on filedocumented in this encounter Additional Health Concerns Assessment Noted Time PHQ-9 Depression Total Score: 12 024 12:25 PM EST documented as of this encounter Care Teams Band Instrument Repairer Relationship Specialty Start Date End Date Kaushik Chow MD [address] [place] [phone] PCP - General Internal Medicine 07/31/20 documented as of this encounter
--- OUTSIDE RECORDS SUMMARY | 2024-07-06 15:27 | XMS_ITS | Clinical Summary ---
Author Organization [facility] [address] [facility] [address] Address [address] [place] [address] Phone Care Team Providers Care Aerodynamic Consultant Name Role Phone Kaushik Chow MD Primary Care Provider [phone] Allergies Active Allergy Reactions Criticality Noted Date Comments Other Runny nose 05/14/2023 Enviromental Medications amLODIPine (NORVASC) 2.5 mg tablet Take 1 Tablet by mouth daily. 4 Active aspirin 81 mg chewable tablet Take 81 mg by mouth daily. Active carbidopa-levod opa (SINEMET) 25-100 mg per tablet Take 1 tablet by mouth 3 (three) times a day. 4 Active loratadine 10 mg capsule Take?by mouth daily. Active metoprolol succinate (TOPROL-XL) 25 mg 24 hr tablet Take 1 Tablet by mouth daily. 4 Active sildenafiL (VIAGRA) 100 mg tablet 1 po hs prn 1 Active omeprazole magnesium (PRILOSEC OTC ORAL) 1 tab po qd prn Active ibuprofen (ADVIL,MOTRIN) 800 mg tablet Take 1 Tablet by mouth as needed. Active atorvastatin (LIPITOR) 20 mg tablet Take 1 Tablet by mouth daily. 30 tablet 5 Active montelukast (SINGULAIR) 10 mg tablet Take 1 Tablet by mouth at bedtime. 30 tablet 5 Active atorvastatin (LIPITOR) 20 mg tablet Take 1 Tablet by mouth daily. 4 06/19/19 25 Discontinued montelukast (SINGULAIR) 10 mg tablet Take 1 Tablet by mouth at bedtime. 4 06/19/19 25 Discontinued Active Problems Problem Noted Date Diagnosed Date Acid reflux 12/08/2023 Overview (12/08/2023): Nl upper and lopwer endoscopy - 1999 Carotid stenosis 07/11/2023 Overview (12/08/2023): 06/17. 50-69% right, <50% left Elevated WBC count 06/06/2023 Overview (12/08/2023): 06/17 CAD (coronary artery disease) 06/27/2022 Overview (12/08/2023): Last Assessment & Plan: The patient has a history of mild nonobstructive coronary artery disease seen on cadia CT scan. This showed overall mild plaque burden in the RCA with scattered calcification and mixed plaque throughout the RCA associated with minimal less than 25% stenosis. In the distal RCA there was eccentric plaque containing spotty calcifications with remodeling less than 20% stenosis which is considered relatively high risk plaque. He did also undergo a stress echocardiogram which showed no ischemic EKG changes and no chest pain during exercise protocol. There was no echocardiographic evidence of cardiac ischemia at 78% of the MPHR. On today's visit, he denies any episodes of chest discomfort or exertional chest pain. He continues on medical therapy with atorvastatin, amlodipine, metoprolol, and aspirin. At this point, we will continue current therapies. Patient advised to seek emergency medical attention by calling 911 if they were to develop severe dyspnea, chest pain that did not resolve with rest or nitroglycerin, or if they were to faint. Dizziness 06/27/2022 Overview (12/08/2023): Last Assessment & Plan: The patient has been noticing symptoms of dizziness when going from a sitting to a standing position. He denies any further episodes of near syncope. He denies any episodes of syncope. Recent hydrate control tender did not show any episodes of sustained arrhythmias. He had 2 episodes of NSVT but both occurred while sleeping and the patient has already been referred for sleep study. Description of the patient's symptoms of dizziness suggest orthostatic hypotension. We will decrease his amlodipine from 5 mg orally daily down to 2.5 mg orally daily. Dyspnea 06/27/2022 Overview (12/08/2023): Last Assessment & Plan: The patient continues to report occasional mild episodes of exertional dyspnea. He denies any exertional chest pain or chest pain at rest. He had an echocardiogram in March 2022 which showed a normal LVEF and no significant valvular disease. His diastolic function was noted to be normal and his RV function was normal. He also had a stress echocardiogram which did not show any evidence of cardiac ischemia with exertion. His cardiac CT scan showed only mild coronary artery disease. Given the results of his recent cardiac testing, his symptoms are likely noncardiac in nature. He did also complete PFTs in June 2022 which were noted to be normal. We did discuss that his symptoms may be related to his chronic smoking and smoking cessation education was provided. He will continue to follow with his primary care provider and neurologist regarding his symptoms. Patient advised to seek emergency medical attention by calling 911 if they were to develop severe dyspnea, chest pain that did not resolve with rest or nitroglycerin, or if they were to faint. Snoring 06/27/2022 Overview (12/08/2023): Last Assessment & Plan: The patient has symptoms of nighttime snoring. He also has symptoms of daytime fatigue and the need to take naps during the day. He also has a history of hypertension. During his recent hydrate control tender, he was noted to have 2 episodes of NSVT while sleeping. All of these findings are suggestive of underlying sleep apnea. The patient was previously referred for a sleep study but he has not been contacted by the sleep medicine service to arrange the sleep study. I will place an order for a sleep study again. Tobacco use disorder 11/28/2020 Overview (12/08/2023): LDCT 12/16. Repeat 12 mo Last Assessment & Plan: We reviewed the importance of smoking cessation as this may be contributing to his symptoms of occasional dyspnea on exertion. The patient is currently smoking a half a pack per day. We discussed the impact of continuing to smoke and the impact on his cardiovascular health including risk of stroke and [place]. The patient is not ready to quit, but reports he has been reducing the amount he has been smoking. He will continue to work on cutting back on smoking. Weight loss 11/28/2020 Elevated blood sugar level 05/02/2020 HTN (hypertension) 10/20/2012 Overview (12/08/2023): Last Assessment & Plan: Patient has a history of hypertension. His blood pressure is noted to be well controlled today. He continues on amlodipine and metoprolol as prescribed. He does report occasional dizziness and is currently seeing a neurologist. He is not orthostatic in the office today. He will continue to monitor his blood pressures at home. At this point, we will continue current therapies. Pure hypercholesterolemia 11/04/2007 Overview (12/08/2023): LDL 181 Last Assessment & Plan: The patient has a history of hyperlipidemia as well as a history of coronary artery disease. He continues on atorvastatin 20 mg orally daily. His goal LDL should ideally be less than 55 given his history of coronary artery disease and high risk plaque noted on cardiac CT scan. His last LDL cholesterol was noted to be 52. We will continue current therapies. I have reviewed with the patient the importance of a heart healthy lifestyle which includes eating a low-fat low-salt diet, getting regular exercise, maintaining a healthy weight, not smoking, and following up with routine medical care. Overweight 09/21/2007 Encounters Date Type Department Care Team Description 07/05/2024 Telephone [facility] Cardiology [facility] [address] [place] [address] Kaushik Chow MD Referral (Paper routine referral on for established patient. Brought to [facility] due to messages in charge from today. aek) 07/05/2024 Telephone [facility] Cardiology [facility] [address] [place] [address] Duarte Burkett MD Appointment (Follow up needed ) 06/10/2024 2:02 PM EDT - 06/10/2024 11:59 PM EDT Hospital Encounter [facility] MRI [address] [place] [address] Strain of extensor tendon of left wrist Discharge Disposition: Home or Self Care from Last 3 Months Immunizations Name Administration Dates Next Due Influenza Quadravalent, MDCK , 0.5ml, preservative free (Flucelvax) 6mo and older 12/09/2018,11/11/2017 Influenza Quadravalent, MDCK , 0.5ml, with preservative (Flucelvax) 6mo and older 11/18/2019,12/13/2016 Influenza trivalent, 0.5mL ( Fluad) 65yo and older 12/04/2022 Influenza trivalent, 0.5mL, preservative free (Fluarix; FluLaval; Fluzone) ages 6mo and older (Afluria) 3 years and older 11/25/2019 Influenza trivalent, with pr eservative (Fluzone; Afluria) 6mo and older 11/08/2015,11/16/2014,12/30/2013 Pneumococcal conjugate 13 va lent (Prevnar 13, PCV13) 2mo and older 02/22/2022 Pneumococcal conjugate 20 va lent (Prevnar 20, PCV 20) 2mo and older 05/14/2023 Td Tetanus diptheria (Tdvax) 7yo and older 11/11 Tdap Tetanus diptheria acell ular pertussis (Boostrix; Adacel) 7yo and older 11/04/2007 Zoster Live 12/13/2016 Surgical History Surgery Date Site/Laterality Comments NECK SURGERY 1999 PROCEDURE: HISTORICAL NECK SURGERY ELBOW SURGERY 1992 PROCEDURE: HISTORICAL ELBOW SURGERY; COMMENT: tendon repair - trauma TONSILLECTOMY age 22 PROCEDURE: HISTORICAL TONSILLECTOMY OTHER SURGICAL HISTORY PROCEDURE: UPPER GASTROINTESTINAL ENDOSCOPY IN NECK SURGERY 06/2014 PROCEDURE: HISTORICAL NECK SURGERY; COMMENT: C6-C7 anterior cervical discectomy and fusion COLONOSCOPY 03/13/12 PROCEDURE: MT COLONOSCOPY STOMA DX INCLUDING COLLJ SPEC SPX; COMMENT: adenoma; repeat in 5 yrs COLONOSCOPY W/ POLYPECTOMY 05/29/2017 PROCEDURE: MT COLSC FLX W/RMVL OF TUMOR POLYP LESION SNARE TQ; COMMENT: adenoma and hemorrhoids; repeat in 5 yrs Medical History Medical History Date Comments Acid reflux DX:Acid reflux; COMMENT: Nl upper and lopwer endoscopy Alcohol use 09/21/2007 DX:Alcohol use Overweight(278.02) 09/21/2007 DX:Overweight (278.02) Pure hypercholesterolemia 11/04/2007 DX:Pur e hypercholesterolemia; COMMENT: LDL 181 Contact dermatitis DX:Contact de rmatitis Seasonal allergies DX:Seasonal a llergies Rectal bleeding 03/28 DX:Rectal bleedi ng Head trauma DX:Head trauma Family History Medical History Relation Name Comments Other cancer Brother skin cancer Lung cancer Mother Relation Name Status Comments Aunt parkinsons Brother Alive Recent [place] Father (Age 90) age; [place] mi d 50s Maternal Grandfather [place] Maternal Grandmother Cancer UK type - colostomy Mother (Age 78) lung ca, m acular degeneration Paternal Grandfather [place] Paternal Grandmother [place] Son 1 Alive asthma Son 2 Alive healthy Uncle emphesema Social History Tobacco Use Types Packs/Day Years Used Date Smoking Tobacco: Every Day Cigarettes Smokeless Tobacco: Never Tobacco Cessation:Ready to Q uit: Not Asked; Counseling Given: Not Answered Alcohol Use Standard Drinks/Week Comments No 0 (1 standard drink = 0.6 oz pur e alcohol) Sex and Gender Information Value Date Recorded Sex Assigned at Not on file Legal Sex Male 5:09 PM EST Gender Identity Not on file Sexual Orientation Not on file Obstetrics History Last Filed Vital Signs Vital Sign Reading Time Taken Comments Blood Pressure 120/60 01/02/2024 10:29 AM EST Pulse 67 01/02/2024 10:18 AM EST Temperature 36.9 ??C (98.4 ??F) 01/02/2024 10:[address] Respiratory Rate 16 04/02/2024 9:34 AM EST Oxygen Saturation - - Inhaled Oxygen Concentration - - Weight 66.2 kg (146 lb) 04/02/2024 9:34 AM EST Height 172.7 cm (5' 8 ) 04/02/2024 9:34 AM EST Body Mass Index 22.2 04/02/2024 9:34 AM EST Plan of Treatment Health Maintenance Due Date Last Done Comments Zoster Vaccines (2 of 3) 02/07/2017 12/13/2016 Abdominal Aortic Aneurysm (AAA) Screen 02/02/2022 Falls Risk Assessment 02/02/2022 Social Influencers of Health Screening 02/02/2022 COVID-19 Vaccine ( season) 2023 01/24/2021, 07/19/2020, 06/14/2020 Hypertension/CHF/CAD Annual BMP Blood Test 12/03/2024 12/04/2023, 12/04/2023 Depression Screening 12/29/2024 12/30/2023 DTaP,Tdap,and Td Vaccines (3 - Td or Tdap) 11/12/2027 11/11/2017, 11/04/2007 Cholesterol Screening (Lipid Panel) 06/04/2028 06/05/2023 Colorectal Cancer Screening: Colonoscopy 07/08/2028 07/09/2023 RSV Immunization Adult Patients (1 - 1-dose 75+ series) 09/20/2031 Hepatitis C Screening Completed 04/15/2013 Pneumococcal Vaccine: 50+ Years Completed 05/14/2023, 02/22/2022 Influenza Vaccine Completed 11/18/2023, , 11/29/2020, Additional history exists HIB Vaccines Aged Out No longer eligi ble based on patient's age to complete this topic HPV Vaccines Aged Out No longer eligi ble based on patient's age to complete this topic Hepatitis A Vaccines Aged Out No long er eligible based on patient's age to complete this topic Hepatitis B Vaccines Aged Out No long er eligible based on patient's age to complete this topic IPV Vaccines Aged Out No longer eligi ble based on patient's age to complete this topic MMR Vaccines Aged Out No longer eligi ble based on patient's age to complete this topic Meningococcal ACWY Vaccine Aged Out N o longer eligible based on patient's age to complete this topic Meningococcal B Vaccine Aged Out No l onger eligible based on patient's age to complete this topic RSV Immunization Patients Under 20 months Aged Out No longer eligible based on patient's age to complete this topic Varicella Vaccines Aged Out No longer eligible based on patient's age to complete this topic Procedures Procedure Name Priority Date/Time Associated Diagnosis Comments MR ELBOW WO CONTRAST LEFT Routine 06/10/2024 4:06 PM EDT Strain of extensor tendon of left wrist ANNUAL BMP BLOOD TEST Routine 12/04/2023 COLONOSCOPY Routine 07/09/2023 LIPID PANEL Routine 06/05/2023 HEPATITIS C SCREENING Routine 04/15/2013 from Last 3 Months or Most Recently Relevant to Health Maintenance Results * MR Elbow wo Contrast Left (06/10/2024 4:06 PM EDT) Anatomical Region Laterality Modality Upper Extremities, Elbow Left Magneti c Resonance 06/11/2024 8:44 AM EDT Impressions 06/11/2024 9:08 AM EDT Common extensor tendinosis with partial-thickness interstitial tear at the humeral attachment site. -------- FINAL REPORT -------- Dictated By: MADELYN ROBLES Dictated Date: 06/11/2024 08:44 ET Assigned Physician: MADELYN ROBLES Reviewed and Electronically Signed By: MADELYN ROBLES Signed Date: 06/11/2024 09:08 ET Workstation ID: [id number] Transcribed By: Self Edit Transcribed Date: 06/11/2024 08:44 ET Narrative 06/11/2024 9:08 AM EDT PROCEDURE: Left elbow MRI INDICATION: Pain TECHNIQUE: Multiplanar, multisequence MRI of the left elbow Without contrast. COMPARISON: ??No priors available. FINDINGS: No fracture or suspicious marrow replacing lesion. Articular cartilage is preserved. ??No joint effusion or intra-articular loose body. Ulnar collateral ligament is intact. ??Radial collateral ligament complex and annular ligament are intact. Biceps and brachialis tendons are intact. Triceps tendon is intact. Tendinosis with partial-thickness interstitial tear of the common extensor tendon at the humeral attachment site. Common flexor tendon is intact. Ulnar nerve is normally located within the cubital tunnel. ??Ulnar nerve is normal in signal and morphology. Muscle bulk is preserved. No fluid collection or mass. Procedure Note Madelyn Robles MD - 06/11/2024 PROCEDURE: Left elbow MRI INDICATION: Pain TECHNIQUE: Multiplanar, multisequence MRI of the left elbow Withoutcontrast. COMPARISON: No priors available. FINDINGS: No fracture or suspicious marrow replacing lesion. Articular cartilage is preserved. No joint effusion or intra-articularloose body. Ulnar collateral ligament is intact. Radial collateral ligament complexand annular ligament are intact. Biceps and brachialis tendons are intact. Triceps tendon is intact. Tendinosis with partial-thickness interstitial tear of the common extensortendon at the humeral attachment site. Common flexor tendon is intact. Ulnar nerve is normally located within the cubital tunnel. Ulnar nerve isnormal in signal and morphology. Muscle bulk is preserved. No fluid collection or mass. IMPRESSION: Common extensor tendinosis with partial-thickness interstitial tear at thehumeral attachment site. -------- FINAL REPORT -------- Dictated By: MADELYN ROBLES Dictated Date: 06/11/2024 08:44 ET Assigned Physician: MADELYN ROBLES Reviewed and Electronically Signed By: MADELYN ROBLES Signed Date: 06/11/2024 09:08 ET Workstation ID: [id number] Transcribed By: Self Edit Transcribed Date: 06/11/2024 08:44 ET Result [facility] IMG MRI PROCEDURES Final Result * Annual BMP Blood Test (12/04/2023) [facility] Annual BMP Blood Test Abstracted Result [facility] Provider [facility] Final Result * Colonoscopy (07/09/2023) [facility] Colonoscopy No interpreta tion,abstr acted Anatomical Region Laterality Modality Other Result [facility] HEALTH MAINTENANCE Final Result * Lipid panel (06/05/2023) [facility] LDL/HDL Ratio 2 0 - 4 Triglycerides 80 0 - 150 mg/dL Cholesterol 123 0 - 200 mg/dL HDL 54 >=40 mg/dL LDL Cholesterol 53 0 - 100 mg/dL Blood Venous blood specimen / Unknown Result [facility] Provider LAB BLOOD ORDERABLES Berna l Result * Hepatitis C Screening (04/15/2013) [facility] Hepatitis C Screening Abstracted us Historical Provider HEALTH MAINTENANCE Final Result from Last 3 Months or Most Recently Relevant to Health Maintenance Insurance [employer] Care Teams Aerodynamic Consultant Relationship Specialty Start Date End Date Kaushik Chow MD [address] [place] [id number] PCP - General Internal Medicine 07/31/20
== END 2024-07-06 14:12 | disposition home or self-care (01) ==
LOC: HO.XRAY 14:11
PROVIDERS: PCP Pediatrics; Visit Provider Nurse Practitioner Family
DX: R25.1 Tremor, unspecified (principal); R29.898 Other symptoms and signs involving the musculoskeletal system
CPT/HCPCS: 72050

== ENCOUNTER → 2024-07-06 14:17 | Outpatient (BNV) | payer MEDICARE, SELFPAY | PROVIDERS: PCP Pediatrics; Visit Provider Radiology Diagnostic Radiology | DX: M50.30 Other cervical disc degeneration, unspecified cervical region (principal) | CPT/HCPCS: 72050 ==

== ENCOUNTER 2024-11-08 12:58 | Outpatient (AMB) | payer MEDICARE, SELFPAY ==
[2024-11-08 13:01] VITALS: BP 136/72; PULSE 71; O2SAT 96; BMI 23.6
--- NOTE | 2024-11-08 13:01 | MHC.OFFVIS ---
Vital Signs 11/08/24 13:01 Height 5 ft 8 in Weight 155 lb BMI 23.6 BP 136/72 Blood Pressure Location Rt brachial Position Sitting Pulse 71 Pulse Source Pulse Oximeter Pulse Oximetry (%) 96 Oxygen Delivery Method Room Air Intake Visit Reasons: 4 mo follow up Intake Note: Follow up family history of Parkinson's disease and has vascular risk factors - seen Margy Connor Clinical Radiologist Required: No Accompanied by: Self / Same As Patient Allergies pollen extracts Allergy (Unknown, Verified 11/08/24 13:01) Unknown Medication List - Last Reconciled 11/08/24 by Asmita Diaz MD amantadine HCl 50 mg (1/2 x 100 mg) PO BID 30 days aspirin (Adult Low Dose Aspirin) 81 mg PO DAILY atorvastatin 20 mg PO DAILY carbidopa-levodopa 25-100 mg 1 tab PO QID diclofenac sodium 1% (Voltaren Arthritis Pain) 4 grams topical QID PRN 7 days escitalopram oxalate (Lexapro) 10 mg PO DAILY ibuprofen 800 mg PO Q8H loratadine 10 mg PO DAILY PRN magnesium oxide 400 mg PO BEDTIME 30 days metoprolol succinate ER 25 mg PO DAILY montelukast 10 mg PO DAILY riboflavin (vitamin B2) 400 mg PO DAILY 30 days HPI Comments Details: 69-yr-old male presents for follow-up of tremor, cognitive difficulties, fall with small posterior falx subdural hematoma in November of 2023. His ELENA scan in 2022 showed normal symmetrical uptake . Tremors- worse . Left UE rest tremors and mild right hand tremors. Gait- feels unsteady and slower Voice- trouble finding words ANxiety-worse , panic attacks . No falls recently HST in October of 2023 was unremarkable. Interval brain MRI without contrast for follow-up of previously known small posterior falx subdural hematoma, was without acute abnormalities, but did demonstrate likely chronic microangiopathic white matter changes and a few chronic microhemorrhages. He is still having having right fontal/temporal headaches, about 4-5 times per week, which come and go- since he fell and hit his head in Nov 2023.tylenol ibuprofen or closes his eyes and rests He feels more photophobic, phonophobic. He is having some cognitive difficulties, feeling more forgetful, having difficulty putting his words together. History from last visit-Last Friday, he was getting ready to go to bed, felt like he might pass out, he felt dizzy, like seeing a tunnel and his hearing felt funny, and became pale white and cold sweaty, and then he collapsed onto a chair. He cannot think of a trigger for this episode- no alcohol, had eaten. He states he has the start of these episodes, but it usually stops on its own. He typically drinks 3-4 16 oz glasses of water, 2-3 coffees, and 1 caffeine free soda per day. Takes very little added salt. He is f/b cardiology- last seen a couple of years ago, though does not recall who he had seen before. Denies h/o occupational exposures. Denies h/o antipsychotic or metoclopramide tx's. has h/o cervical sx repair x's 2- . [facility] Medical History (Updated 07/01/24 @ 17:57 by BEVERLY Parra) HLD (hyperlipidemia) HTN (hypertension) Alcohol abuse, in remission Surgical History H/O removal of cyst S/P spinal surgery Hx of release of tendon Hx of tonsillectomy Hx of neck surgery Family History Mother Lung cancer Macular degeneration Father Myocardial infarction Brother Myocardial infarction Maternal Grandmother Cancer Son Asthma Social History Alcohol intake: former Patient Tobacco Use Status: Current everyday Tobacco user Substance Use Type: Marijuana Physical Exam Vital Signs: Last Vital Signs Pulse 71 11/08/24 13:01 BP 136/72 11/08/24 13:01 Pulse Ox 96 11/08/24 13:01 Oxygen Delivery Method Room Air 11/08/24 13:01 BMI result Body Mass Index 23.6 Const General: cooperative and no acute distress Resp Effort & Inspection: normal respiratory effort and able to speak in complete sentences Neuro Other: A&O x's 3, with mild short-term memory lapses Slight decreased expression. Finger-nose no dysmetria today. Cog wheel rigidity Right UE 2 + LUE rest tremor.= 8=12 hx Addison L > R postural, postural, wing beat, and kinetic tremor Stands ok, no right arm swing, slight stooping shoulder, steady gait, stride ok. Time BP HR Associated symptoms Assessment & Plan Assessment & Plan (1) Tremor: Comment: 2022 DaTSCAN- minimal decreased uptake in the anterior right putamen. Code(s): R25.1 - Tremor, unspecified Category: Medical (2) Rigidity: Code(s): R29.898 - Other symptoms and signs involving the musculoskeletal system Category: Medical (3) Cognitive changes: Code(s): R41.89 - Other symptoms and signs involving cognitive functions and awareness Category: Medical (4) Head injury with loss of consciousness: Comment: November 2023- fall with subsequent small posterior falx subdural hematoma Code(s): S06.9X9A - Unspecified intracranial injury with loss of consciousness of unspecified duration, initial encounter Category: Medical Plan I suggested to increase carbidopa/levodopa 25/100 qid I will trial him on lexapro 10mg qd for anxiety For headaches, which have worsened since November 2023 head injury with posterior falx subdural hematoma: Continue riboflavin 400 mg q.a.m. Continue magnesium 400 mg q.h.s.- may help leg cramps and constipation as well May continue ibuprofen as needed. Information shared on nonpharmacological strategies to reduce light and noise sensitivity. ? Medications: New escitalopram oxalate (Lexapro) 10 mg PO DAILY 30 tabs 6RF Changed From carbidopa-levodopa 25-100 mg 1 tab PO TID 270 tabs 3RF To carbidopa-levodopa 25-100 mg 1 tab PO QID 360 tabs 3RF Refilled carbidopa-levodopa 25-100 mg 1 tab PO QID 360 tabs 3RF Coding Level of Care Code Est Pt Level 4 (28098) Complex EM visit Add On G2211 Diagnoses Tremor R25.1 Rigidity R29.898 Cognitive changes R41.89 Head injury with loss of consciousness S06.9X9A
--- OUTSIDE RECORDS SUMMARY | 2024-11-08 17:57 | XMS_ITS | Clinical Summary ---
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 4 Active aspirin 81 mg chewable tablet Take 81 mg by mouth daily. Active carbidopa-levod opa (SINEMET) 25-100 mg per tablet Take 1 tablet by mouth 3 (three) times a day. 4 Active loratadine 10 mg capsule Take by mouth daily. Active metoprolol succinate (TOPROL-XL) 25 mg 24 hr tablet Take 1 Tablet by mouth daily. 4 Active sildenafiL (VIAGRA) 100 mg tablet 1 po hs prn 1 Active omeprazole magnesium (PRILOSEC OTC ORAL) 1 tab po qd prn Active ibuprofen (ADVIL,MOTRIN) 800 mg tablet Take 1 Tablet by mouth as needed. Active montelukast (SINGULAIR) 10 mg tablet Take 1 Tablet by mouth at bedtime. 30 tablet 5 Active amantadine (SYMMETREL) 100 mg capsule Take 0.5 tablets (50 mg total) by mouth 2 (two) times a day. Active atorvastatin (LIPITOR) 20 mg tablet Take 1 tablet (20 mg total) by mouth 1 (one) time each day. 30 tablet 5 Active atorvastatin (LIPITOR) 20 mg tablet Take 1 Tablet by mouth daily. 30 tablet 5 10/20/19 25 Discontinu ed(Reorder ) Active Problems Problem Noted Date Diagnosed Date Acid reflux 12/08/2023 Overview (12/08/2023): Nl upper and lopwer endoscopy - 1999 Carotid stenosis 07/11/2023 Overview (12/08/2023): 06/17. 50-69% right, <50% left Assessment & Plan (07/26/2024 1:02 PM EDT): No evidence of symptomatic carotid artery disease. Continue with aspirin, atorvastatin and metoprolol. Orders: ECG 12 lead Elevated WBC count 06/06/2023 Overview (12/08/2023): 06/17 CAD (coronary artery disease) 06/27/2022 Assessment & Plan (07/26/2024 1:02 PM EDT): Mild nonobstructive coronary artery disease. No anginal symptoms. Last echocardiogram showed preserved LV systolic function with no RWMAs. Continue with aspirin, atorvastatin and metoprolol. We discussed risk reduction through lifestyle choices including healthy diet, routine exercise and weight management. Orders: ECG 12 lead Dizziness 06/27/2022 Assessment & Plan (07/26/2024 1:02 PM EDT): Several worsening episodes of lightheadedness with recurrent presyncope and syncope. Previous negative cardiac workup. He did not have event while the monitor was on previously. I did mention that to be comprehensive we should consider ILR in order to rule out arrhythmias based syncope. I suspect his symptoms are neurology. He will think about the monitor and let us know. I did encouraged him to use compression stockings and stay hydrated. Orthostatics were negative in office today. Orders: ECG 12 lead Dyspnea 06/27/2022 Snoring 06/27/2022 Tobacco use disorder 11/28/2020 Weight loss 11/28/2020 Elevated blood sugar level 05/02/2020 HTN (hypertension) 10/20/2012 Assessment & Plan (07/26/2024 1:02 PM EDT): Controlled. Continue with metoprolol. Pure hypercholesterolemia 11/04/2007 Assessment & Plan (07/26/2024 1:02 PM EDT): Continue with atorvastatin. Overweight 09/21/2007 Encounters Date Type Department Care Team Description 08/10/2024 Telephone Adult [facility] - [facility] [address] [place] [address] Kaushik Chow MD from Last 3 Months Immunizations Name Administration [...] cervical discectomy and fusion COLONOSCOPY 03/13/12 PROCEDURE: ME COLONOSCOPY STOMA DX INCLUDING COLLJ SPEC SPX; COMMENT: adenoma; repeat in 5 yrs COLONOSCOPY W/ POLYPECTOMY 05/29/2017 PROCEDURE: ME COLSC FLX W/RMVL OF TUMOR POLYP LESION [...] Status Comments Aunt parkinsons Brother Alive Recent PA Father (Age 90) age; PA mi d 50s Maternal Grandfather [place] Maternal [...] Sign Reading Time Taken Comments Blood Pressure 124/66 07/26/2024 10:42 AM EDT Pulse 67 07/26/2024 10:42 AM EDT Temperature 36.9 C (98.4 F) 01/02/2024 10:18 AM EST Respiratory Rate 16 04/02/2024 9:34 AM EST Oxygen Saturation 99% 07/26/2024 10:42 AM EDT Inhaled Oxygen Concentration - - Weight 67.1 kg (148 lb) 07/26/2024 10:42 AM EDT Height 172.7 cm (5' 8 ) 07/26/2024 10:42 AM EDT Body Mass Index 22.5 07/26/2024 10:42 AM EDT Plan of Treatment Upcoming Encounters Date Type Department Care Team (Late st Contact Info) Description 11/19/2024 1:30 PM EDT Office Visit Adult [facility] - [facility] [address] [place] [address] Edie Martinez NP [address] [place] [address] 12/22/2024 3:15 PM EDT Appointment [facility] Scan [address] [place] [id number] Health Maintenance Due Date Last Done Comments Zoster Vaccines (2 of 3) 02/07/2017 12/13/2016 Abdominal Aortic Aneurysm (AAA) Screen 02/02/2022 Falls Risk Assessment 02/02/2022 Medicare Annual Wellness Visit 02/02/2022 Social Influencers of Health Screening 02/02/2022 Depression Screening 02/25/2024 12/30/2023 COVID-19 Vaccine ( season) 2024 01/24/2021, 07/19/2020, 06/14/2020 Influenza Vaccine (#1) 2024 , 12/04/2022, 11/29/2020, Additional history exists Hypertension/CHF/CAD Annual BMP Blood Test 12/03/2024 12/04/2023, 12/04/2023 DTaP,Tdap,and Td Vaccines (3 - Td or Tdap) 11/12/2027 11/11/2017, 11/04/2007 Cholesterol Screening (Lipid Panel) 06/04/2028 06/05/2023 Colorectal Cancer Screening: Colonoscopy 07/08/2028 07/09/2023 RSV Immunization Adult Patients (1 - 1-dose 75+ series) 09/20/2031 Hepatitis C Screening Completed 04/15/2013 Pneumococcal Vaccine: 50+ Years Completed 05/14/2023, 02/22/2022 HIB Vaccines Aged Out No longer eligi [...] Procedure Name Priority Date/Time Associated Diagnosis Comments ANNUAL BMP BLOOD TEST Routine 12/04/2023 COLONOSCOPY Routine 07/09/2023 LIPID PANEL Routine 06/05/2023 HEPATITIS C SCREENING Routine 04/15/2013 from Last 3 Months or Most Recently Relevant to Health Maintenance Results * Annual BMP Blood Test (12/04/2023) Pathologist [facility] Annual BMP Blood Test Abstracted [facility] Provider HEALTH MAINTENANCE Final Result * Colonoscopy (07/09/2023) [facility] Colonoscopy No interpreta tion,abstr acted Anatomical Region Laterality Modality Other [facility] Provider MD HEALTH MAINTENANCE Final Result * Lipid panel (06/05/2023) [facility] LDL/HDL Ratio 2 0 - 4 Triglycerides 80 0 - 150 mg/dL Cholesterol 123 0 - 200 mg/dL HDL 54 >=40 mg/dL LDL Cholesterol 53 0 - 100 mg/dL Blood Venous blood specimen / Unknown us Historical Provider LAB BLOOD ORDERABLES Berna l Result * Hepatitis C Screening (04/15/2013) Hepatitis C Screening Abstracted Historical Provider HEALTH MAINTENANCE Final Result from Last 3 Months or Most Recently Relevant to Health Maintenance Insurance [employer] - [place] MEDICARE ADVANTAGE Care Teams Carving Machine Operator Relationship Specialty Start Date End Date Kaushik Chow MD [address] [place] [id number] PCP - General Internal Medicine 07/31/20
== END 2024-11-08 13:27 | disposition home or self-care (01) ==
LOC: HO.HSMS 12:59
PROVIDERS: PCP Pediatrics; Visit Provider Psychiatry & Neurology Neurology
DX: R25.1 Tremor, unspecified (principal); R29.898 Other symptoms and signs involving the musculoskeletal system; R41.89 Other symptoms and signs involving cognitive functions and awareness; S06.9X9A Unspecified intracranial injury with loss of consciousness of unspecified duration, initial encounter
CPT/HCPCS: 99214; G2211

== ENCOUNTER → 2024-11-08 12:58 | Outpatient (BNVA) | payer MEDICARE, SELFPAY | PROVIDERS: PCP Pediatrics; Visit Provider Psychiatry & Neurology Neurology | DX: R25.1 Tremor, unspecified (principal); R29.898 Other symptoms and signs involving the musculoskeletal system; R41.89 Other symptoms and signs involving cognitive functions and awareness; R51.9 Headache, unspecified | CPT/HCPCS: 99212 ==